=== PATIENT | female | born 1960 | race Caucasian/White ===

== ENCOUNTER 2016-04-30 21:39 | Inpatient (IN) | payer OTHER, MEDICARE ==
--- NOTE | ~2016-04-30 | BMI ---
[facility] Nutrition Therapy DATE: 05/03/16 Patient: IRENE RECINOS Physician: LUANNE Address: [address] [place] [address] [address] Room/Bed: [address] [place] [address], Zip: [place] [address] Admit Date: 05/01/16 Date of : 58 Height: 5 5 Weight: 252 114.6 HIGH BMI NOTE: ANTHROPOMETRICS: HT: 65" WT: 114.6 KG BMI: 42 INTERVENTION: 1. CONSISTENT CARBOHYDRATE DIET RECOMMENDATIONS: 1. ADD HEART HEALTHY RESTRICTION TO DIET TO PROMOTE GRADUAL WEIGHT LOSS. Respectfully, JOSIE FITZGERALD RD, LD Food and Nutritional Services [facility] cc: client file
--- NOTE | ~2016-04-30 | HP ---
Unit #: [id number] #: [id number] Patient: IRENE RECINOS [id number] [address] [place], [place] [address] [id number] I MR#: [id number] NAME: IRENE RECINOS. ROOM: 39949 Age: 55 Sex: F Admission Date: 05/01/2016 : 1960 Attending Physician: Oralia Nix M.D. Primary Care Physician: Tania Vizcarra HISTORY AND PHYSICAL CHIEF COMPLAINT Urinary tract infection with intractable nausea, vomiting and toxic metabolic encephalopathy. HISTORY This 55-year-old female with AODM, COPD, hypertension, chronic kidney disease, is admitted for a urinary tract infection. The patient was in her usual state of health until three days ago when she was more somnolent, dosing off, seeing things. She then developed intractable nausea, vomiting, notes some mild dysuria. Denies fevers, sweats or chills. She presented to this emergency department late last evening where she was somewhat hypertensive. Workup was notable for chronic kidney disease nearing end stage, along with a urinary tract infection. In the ER, she was given two doses of Zofran but continues to feel nauseous, and 1 g of Rocephin. PAST MEDICAL HISTORY 1. Admission 11/2007 for a subacute pontine infarct. JOSE revealed aneurysmal atrial septum. Normal ejection fraction, minimal atherosclerotic of the aorta, trace MR and TR. 2. DJD and chronic back pain with bulging discs. 3. COPD. 4. AODM. 5. Chronic kidney disease with a BUN of 34, creatinine of 3.7 03/2016. Plans are for a fistula or dialysis shunt in her left arm. 6. Anxiety and depression. 7. Hypertension. 8. Remote history of paroxysmal atrial fibrillation. 9. Immobilization syndrome, patient uses a motorized wheelchair. 10. Right humerus fracture, treated conservatively. 11. Partial hysterectomy. 12. Tonsillectomy. 13. Excision of a pilonidal cyst. ALLERGIES No known drug allergies. MEDICATIONS Home medications on the Med Rec sheet include: 1. Wellbutrin XL 150 mg daily. 2. Coreg 6.25 mg b.i.d. 3. Norvasc 10 mg daily. 4. Iron tablet daily. Unit #: [id number] #: [id number] Patient: IRENE RECINOS 5. Lisinopril 5 mg daily. 6. Lasix 20 mg daily. 7. Calcitriol 0.25 mcg daily. 8. Lipitor 80 mg q. h.s. 9. Aspirin 325 mg daily. 10. Sodium bicarb 650 mg t.i.d. 11. P.r.n. Humalog. FAMILY HISTORY Diabetes mellitus, colon and pancreatic cancer, pacemaker. SOCIAL HISTORY The patient lives with her elderly . She stopped smoking two months ago, seldom drinks alcohol. REVIEW OF SYSTEMS Notable for nausea, vomiting, mild dysuria, confusion, hallucinations, chronic kidney disease, DJD, chronic pain, COPD, AODM, chronic kidney disease, anxiety, depression, hypotension, arrhythmia, above mentioned surgeries, previous CVA. All other systems were reviewed and are otherwise negative. PHYSICAL EXAMINATION GENERAL APPEARANCE: 55-year-old, obese female, currently in no acute distress. VITAL SIGNS: Temperature 98.2, pulse 90, respirations 16, blood pressure 170/79. O2 saturation is 96% on room air. HEENT: Eyes PERRLA. Extraocular muscles are intact. Pharynx is benign. NECK: Supple without adenopathy or thyromegaly. CHEST: Clear. BACK: With mild left CVA tenderness. CARDIAC: Normal S1 and S2 without S3, S4 or murmur. ABDOMEN: Bowel sounds are present. No hepatosplenomegaly, tenderness or masses. EXTREMITIES: Without edema. Pedal pulses are present but diminished. No ulcers on the feet. NEUROLOGIC EXAM: The patient is awake, alert, oriented. Cranial nerves are intact. She has equal strength throughout. DIAGNOSTIC STUDIES LABORATORY: Admission labs - hematocrit is 37.8, white blood count is 16.4, normal platelet count. SMA-12 - glucose 136, BUN 37, creatinine 4 up from a BUN of 34, creatinine 3.7 in March. Alkaline phos. 122. Negative alcohol. Normal lactic acid. Negative troponin. ABG - pH 7.37, pCO2 39, pO2 76, O2 saturation 94% on room air. Urine tox screen negative. Urinalysis - positive leukocyte esterase, positive protein, glucose, 2-5 red cells, 200-300 white cells, 1+ bacteria. IMAGING: Chest x-ray - chronic changes but no acute disease. Stable Unit #: [id number] #: [id number] Patient: IRENE RECINOS cardiomegaly. Head CT - no acute disease. Stable hypodensities. CARDIOVASCULAR: EKG - normal sinus rhythm, rate 88. Nonspecific ST wave abnormalities, particularly in 1 and AVL which is somewhat increased from before. ASSESSMENT 1. Pyelonephritis with intractable nausea and vomiting. 2. Toxic metabolic encephalopathy with hallucinations secondary to pyelonephritis. 3. Chronic kidney disease nearing end stage with plans for fistula or dialysis shunt placement in the future. 4. Adult onset diabetes mellitus. 5. Hypertension. 6. Paroxysmal atrial fibrillation, currently in a normal sinus rhythm. 7. Chronic obstructive pulmonary disease. 8. Immobilization syndrome. 9. Prior cerebrovascular accident. PLANS 1. Rocephin will be continued. 2. IV fluids and supportive treatment. Hold Lasix. 3. SCDs for DVT prophylaxis. Dictated by Pasha Sanchez/lior TD: 05/01/2016 06:03 JOB #: [id number] HISTORY AND PHYSICAL X Oralia Nix MD X HISTORY AND PHYSICAL
--- NOTE | ~2016-04-30 | CR72 ---
[facility] A Service of [facility] RADIOLOGY TEXT RESULTS PATIENT: IRENE RECINOS LOCATION: [facility] 334-01 : 58 UNIT #: [id number] AGE: [address]: Abran Pérez MD SEX: F ORDER DR: [id number] [facility] [address] [place], [place] [address] [id number] I MR#: [id number] Acc #: [id number] NAME: IRENE RECINOS. : 1960 SEX: F STUDY DATE/TIME: 04/30/2016 21:53 UNIT: CEDOF ROOM: 66405 STUDY DESCRIPTION: CR Chest Single View Portable Attending Physician: Oralia Nix M.D. Ordering Physician: Maximino Rosales M.D. Primary Care Physician: Tania Vizcarra MEDICAL IMAGING REPORT This report is preliminary unless electronic signature is present EXAM Portable chest 04/30/2016 HISTORY Shortness of breath, fever, nausea and cough for 3 days. Benign essential hypertension and nausea. FINDINGS There is mild cardiac enlargement. Focal fibrosis is seen in the right upper lobe. Pleural thickening or pleural effusion blunts the right costophrenic angle. Left lung is clear. No pneumothorax. IMPRESSION 1. Chronic changes right lung. No active pulmonary disease. 2. Stable cardiomegaly compared with 03/29/2016. Dictated by... Aiden Vásquez M.D. THIS IS AN ELECTRONICALLY VERIFIED REPORT Aiden Vásquez M.D. at 05/01/2016 10:57 AM SHARMIN/matthias TD: 05/01/2016 05:58 JOB #: [id number] MEDICAL IMAGING REPORT COPY
--- NOTE | ~2016-04-30 | EKG ---
PATIENT: IRENE RECINOS UNIT #: [id number] Ventricular Rate: 88 BPM Atrial Rate: 88 BPM P-R Interval: 96 ms QRS Duration: 72 ms Q-T Interval: 384 ms QTC Calculation(Bezet): 464 ms P [place]: 17 degrees Calculated R [place]: 10 degrees Calculated T [place]: 129 degrees Diagnosis Line: Sinus rhythm with short SC Diagnosis Line: Septal infarct , age undetermined Diagnosis Line: ST and T wave abnormality, consider lateral ischemia Diagnosis Line: Abnormal ECG Diagnosis Line: When compared with ECG of 20-NOV-2013 10:30, Diagnosis Line: Septal infarct is now Present Diagnosis Line: Nonspecific T wave abnormality has replaced Diagnosis Line: inverted T waves in Inferior leads Diagnosis Line: T wave inversion less evident in Anterolateral Diagnosis Line: leads Diagnosis Line: Confirmed by CYNTHIA FAGAN MD ([id number]) on 05/01/2016 Diagnosis Line: 7:35:15 PM INTERPRETING MD: RYLAN JUDGE
--- NOTE | ~2016-04-30 | CO ---
Unit #: [id number] #: [id number] Patient: ABY RODRIGUEZ [id number] [address] [place], [place] [address] [id number] I MR#: [id number] NAME: ABY RODRIGUEZ. ROOM: 334 Age: 55 Sex: F Admission Date: 05/01/2016 : 1960 Attending Physician: Abran Pérez M.D. Primary Care Physician: Tania Vizcarra Consultation Date: 05/02/2016 CONSULTATION REPORT REASON FOR CONSULTATION Renal failure. Thank you very much for asking us to see this patient in consultation. HISTORY OF PRESENT ILLNESS Ms. Aby Rodriguez is a 55-year-old female with a history of chronic kidney disease, late stage 4 or early stage 5, followed by Dr. Austin Deutsch in our group with creatinines in the mid 3s now who has a fistula surgery planned in 06/2016, who presented to the hospital here with apparently some increased may be a confusion at home, questionable TIA versus hypoglycemic episode. Upon presentation here had a negative CT scan and was more alert. She has had several days of nausea and vomiting. She states that it has improved some today. She denies any chest pain or shortness of breath. PAST MEDICAL HISTORY History of insulin-dependent diabetes mellitus, history of CVA in the past, history of COPD, history of chronic back pain, history of anxiety, history of depression, history of chronic kidney disease late stage 4 or early stage 5, history of degenerative joint disease, history of hypertension, history of hyperlipidemia, history of secondary hyperparathyroidism, and history of anemia. SOCIAL HISTORY She is . No alcohol. Retired. Still smokes apparently a pack a day. MEDICATIONS At home include sodium bicarb 650 two p.o. b.i.d.; Lasix 20 mg a day; Rocaltrol 0.25 mcg every Friday, Friday, and Friday; iron pill daily; Norvasc 10 mg a day; Coreg 6.25 mg b.i.d.; insulin; aspirin 325 mg a day; atorvastatin 80 mg a day; bupropion 150 mg daily; Chantix as needed; lisinopril 5 mg a day, inhalers. FAMILY HISTORY Positive for diabetes. Negative for kidney disease. REVIEW OF SYSTEMS As mentioned in the HPI, otherwise negative. No fevers, chills, visual problems, sinus problems, cough or hemoptysis. No neck pain or neck stiffness. No chest pain, chest heaviness, or shortness of breath. No severe abdominal pain. She did have nausea and vomiting that has improved. She denies any urinary symptoms. Upon presentation, she denies Unit #: [id number] #: [id number] Patient: ABY RODRIGUEZ any lower extremity swelling. PHYSICAL EXAMINATION GENERAL: She is alert and oriented now. VITAL SIGNS: Her T-max over the last 24 hours is 98.8, pulse is 67 to 92, blood pressure is anywhere from 95 to 163 over 50s to 80s. HEENT: She is normocephalic and atraumatic. Pupils are equal, round, and reactive to light. Extraocular muscles are intact. Hearing appears to be normal. Mouth clear. No erythema. No exudate. NECK: Supple. No JVD. No adenopathy. CARDIAC: She appears to have a regular rate without a rub. No S3 or S4. LUNGS: Clear bilaterally. No wheezes, rhonchi, or rales. ABDOMEN: Bowel sounds positive, obese, nontender, soft. EXTREMITIES: She has no lower extremity swelling. NEURO: Appears to be intact motor and sensory grossly now. : Deferred. DIAGNOSTIC STUDIES IMAGING STUDIES: She had a CT of her head showed no acute abnormalities. There was a hypodense area in the bilateral basal ganglia, left greater than right, stable from a previous study. Chest x-ray showed no acute disease, cardiomegaly. LABORATORY RESULTS: ABG upon presentation showed a pH of 7.369, pCO2 of 39, pO2 of 76 on room air. Initially, her BUN and creatinine were 34 and 4.0, today at 35 and 3.8; potassium of 4.5, bicarb of 21. Her calcium was 7.8, albumin was 2.9. CPK was 133. Folic acid level was 4.8. Iron stores in March showed a transferrin saturation of 7. Her hemoglobin is 9.3 down from 12.3 with hydration, [place] [address] down to 9200, platelets 203,000. Her initial urinalysis shows specific gravity of 1.02, nitrite negative, 3+ protein, 215 glucose, and 1+ blood, 2 to 5 rbc's, 200 to 300 wbc's, 1+ bacteria. Urine culture is negative at 24 hours. She did have 1 out of 2 blood cultures showing her Staph species possible skin contaminant. Repeat blood cultures yesterday are pending x2. ASSESSMENT AND PLAN 1. Chronic kidney disease, late stage 4 or early stage 5. I doubt if her nausea and vomiting related to uremia, although certainly it cannot be 100% sure. It is better today and I am going to try to advance her diet. I am going to discontinue her lisinopril usually when they functions less than 15%, I usually discontinue the AARON inhibitor to see if that help to improves. I will follow her blood pressure trends off the lisinopril. We will continue her sodium bicarb due to her mild acidosis and hold off on dialysis if unless she continues to have worsening nausea and vomiting. She has a fistula to be placed back sometime in 06/2016. 2. Hypertension. As mentioned above discontinue lisinopril. Continue other current medications. We will follow trends. 3. Probable urinary tract infection, on Rocephin right now. Probably, we would keep her on some sort of antibiotic at least 7 days even though her cultures are negative, although could be on oral agent not Bactrim when she gets discharged home. 4. Possible bacteremia. She did have an increased white count when she came in, which is improved, although that could be related to urine versus other. Repeat blood cultures are pending. If they are negative, I would recommend trying to get off vancomycin due to the risk of nephrotoxicity. 5. Slurring of speech, questionable from hypoglycemia versus transient ischemic attack versus other. We will defer further workup and treatment Unit #: [id number] #: [id number] Patient: ABY RODRIGUEZ per primary. Certainly, if the patient improves tomorrow, eating well, probably okay to be discharged, but I would like to watch her one more day. Dictated by.Jeffry. Rom Gomez M.D. CARLOS ALBERTO/vane TD: 05/03/2016 02:46 JOB #: [id number] CONSULTATION REPORT X Dandre Gomez MD X CONSULTATION REPORT
--- NOTE | ~2016-04-30 | CT4 ---
[facility] A Service of [facility] RADIOLOGY TEXT RESULTS PATIENT: IRENE RECINOS LOCATION: [facility] 334-01 : 58 UNIT #: [id number] AGE: [address]: Abran Pérez MD SEX: F ORDER DR: [id number] [facility] [address] [place], [place] [address] [id number] I MR#: [id number] Acc #: [id number] NAME: IRENE RECINOS. : 1960 SEX: F STUDY DATE/TIME: 05/02/2016 16:26 UNIT: A U ROOM: [facility] STUDY DESCRIPTION: CT Abd and Pelv Wo Cont Attending Physician: Abran Pérez M.D. Ordering Physician: Ed Doctor [id number] [facility] Primary Care Physician: Tania Vizcarra MEDICAL IMAGING REPORT This report is preliminary unless electronic signature is present EXAM CT abdomen and pelvis without contrast Date: 05/02/2016 HISTORY A 55-year-old female with pain in back today. History of urinary tract infection. Hypertension. Previous stroke. COPD. Diabetes. Kidney disease. Previous hysterectomy. TECHNIQUE This CT exam was performed with one or more of the following radiation dose reduction techniques: automatic exposure control, adjustment of mA and/or kV according to patient size, and iterative reconstruction. COMPARISON No previous CT abdomen and pelvis at this institution for comparison. PROCEDURE 3 mm noncontrast axial images through the abdomen and pelvis. Enteric contrast was not administered. FINDINGS Rounded atelectasis is present posterolaterally in the right lower lobe. Benign calcified granuloma in the posterior left lower lobe. Multiple gallstones are present without definite pericholecystic inflammation or biliary dilation. Noncontrast appearance of the liver, spleen, pancreas, adrenals within normal limits. Extensive bilateral renal vascular calcifications but no definite renal or ureteral stone, hydronephrosis or hydroureter is appreciated. Dense calcification of the mesenteric arteries. Midline hernia containing nonobstructed bowel loops. The [facility] A Service of [facility] RADIOLOGY TEXT RESULTS PATIENT: IRENE RECINOS LOCATION: [facility] 334-01 : 58 UNIT #: [id number] AGE: [address]: Abran Pérez MD SEX: F ORDER DR: appendix is normal. Limited evaluation of bowel due to lack of enteric contrast but no definite acute bowel inflammation is seen. Extensive diverticular changes throughout the colon, greatest in the sigmoid region, without convincing CT evidence of acute diverticulitis. Pelvis: Urinary bladder, uterus and rectum are within normal limits. No pelvic adenopathy or free fluid is seen. No acute osseous abnormalities are identified. Old left rib fractures posteriorly. IMPRESSION 1. No acute findings in the abdomen or pelvis. No urinary tract stone or hydronephrosis is seen. 2. Dense atherosclerotic calcifications in the renal vasculature and within the mesenteric arteries. 3. Chronic-appearing rounded atelectasis in the right lower lobe. 4. Cholelithiasis without CT evidence of acute cholecystitis. 5. Midline ventral hernia containing nonobstructed bowel. 6. Advanced sigmoid diverticulosis without CT evidence of acute diverticulitis. 7. Normal appendix. 8. Old left rib fractures. Dictated by... Shani Lawson M.D. THIS IS AN ELECTRONICALLY VERIFIED REPORT Shani Lawson M.D. at 05/03/2016 9:14 AM RAUL/vitaly TD: 05/02/2016 21:55 JOB #: [id number] MEDICAL IMAGING REPORT COPY
--- NOTE | ~2016-04-30 | CT71 ---
[facility] A Service of [facility] RADIOLOGY TEXT RESULTS PATIENT: IRENE RECINOS LOCATION: [facility] 334-01 : 58 UNIT #: [id number] AGE: [address]: Abran Péerz MD SEX: F ORDER DR: [id number] [facility] [address] [place], [place] [address] [id number] I MR#: [id number] Acc #: [id number] NAME: IRENE RECINOS. : 1960 SEX: F STUDY DATE/TIME: 04/30/2016 22:42 UNIT: CEDOF ROOM: 34910 STUDY DESCRIPTION: CT Head Wo Contrast Attending Physician: Oralia Nix M.D. Ordering Physician: Maximino Rosales M.D. Primary Care Physician: Tania Vizcarra MEDICAL IMAGING REPORT This report is preliminary unless electronic signature is present EXAM CT head without contrast dated 04/30/2016. COMPARISON CT head without contrast dated 11/23/2009. HISTORY Slurred speech since 2100 hours on Friday, memory loss. This CT exam was performed with one or more of the following radiation dose reduction techniques: automatic exposure control, adjustment of mA and/or kV according to patient size, and iterative reconstruction. FINDINGS CT of the head was obtained without contrast in the axial plane as per the protocol. No acute intracranial hemorrhage, space-occupying intracranial mass, hydrocephalus or midline shift. Focal hypo density is seen in the left basal ganglia and to a lesser degree in the right, relatively stable in the last 7 years. Significant motion artifact is noted. The study was evaluated after giving allowances to it. No obvious discernible acute intracranial hemorrhage, hydrocephalus or midline shift. There is minimal right mastoid tip mucosal thickening and paranasal sinus mucosal thickening. It is particularly worse in the left maxillary antrum with some frothiness. Nasal septum is deviated to the left. Imaged orbits with the ocular structures do not demonstrate any significant abnormality. IMPRESSION 1. Motion artifact limits evaluation. 2. No acute intracranial hemorrhage, hydrocephalus or midline shift. 3. Mild hypodensities are noted in bilateral basal ganglia particularly in the left, stable when compared to the previous study, suspicious for likely mild encephalomalacia change. 4. MRI is more sensitive and specific in evaluation of early acute STS. [facility] A Service of [facility] RADIOLOGY TEXT RESULTS PATIENT: IRENE RECINOS LOCATION: [facility] 334-01 : [birth year] UNIT #: [id number] AGE: [address]: Abran Pérez MD SEX: F ORDER DR: stroke. Dictated by... Dominic Villa M.D. THIS IS AN ELECTRONICALLY VERIFIED REPORT Dominic Villa M.D. at 05/01/2016 10:46 AM DONNA/david TD: 05/01/2016 07:29 JOB #: [id number] MEDICAL IMAGING REPORT COPY
--- NOTE | ~2016-04-30 | DS ---
Unit #: [id number] #: [id number] Patient: IRENE RECINOS [id number] [address] [place], [place] [address] [id number] I MR#: [id number] NAME: IRENE RECINOS. ROOM: 334 Age: 55 Sex: F Admission Date: 05/01/2016 : 1960 Discharge Date: 05/03/2016 Attending Physician: Abran Pérez M.D. Primary Care Physician: Tania Vizcarra DISCHARGE SUMMARY DISCHARGE DIAGNOSES 1. Klebsiella pneumoniae urinary tract infection. Will be discharged on Levaquin. Sensitive to Levaquin. 2. Incidental finding of cholelithiasis. Arranging for outpatient followup with general surgery. 3. Toxic metabolic encephalopathy secondary to urinary tract infection and dementia. 4. Chronic kidney disease stage 4, followed by Dr. Deutsch and Dr. Gomez. Will see Dr. Deutsch within 2-3 weeks for repeat BMP. 5. Type 2 diabetes. Accu-Cheks stable here. 6. Essential hypertension. Blood pressure has been stable. Dr. Deutsch is adding hydralazine 25 mg orally t.i.d. to her home management. 7. Paroxysmal atrial fibrillation. Currently in normal sinus rhythm. 8. Chronic obstructive pulmonary disease, stable, without acute exacerbation. The patient is oxygenating well at 99% to 100% on room air. 9. Immobility syndrome. 10. Remote cerebrovascular accident. 11. Morbidly obese with body mass index of 42. HEALTHCARE FACILITY ADMINISTRATOR Nephrology with Dr. Gomez and Dr. Deutsch. PROCEDURES None. DIAGNOSTIC STUDIES IMAGING: Chest x-ray from 04/30/16. Impression - Chronic changes right lung. No active pulmonary disease. Stable cardiomegaly compared with 03/29/16. Head CT without contrast. Impression - Motion artifact limits evaluation. No acute intracranial hemorrhage, hydrocephalus or midline shift. Mild hypodensities are noted in bilateral basal ganglia, particularly in the left. Stable when compared to the previous study. Suspicious for likely mild encephalomalacia change. CT abdomen and pelvis on 05/02/16. Impression - No acute findings in the abdomen or pelvis. No urinary tract stone or hydronephrosis is seen. Dense atherosclerotic calcifications in the renal vasculature and within the mesenteric arteries. Chronic-appearing rounded atelectasis in the middle lower lobe. Cholelithiasis without CT evidence of acute cholecystitis. Midline ventral hernia containing unobstructed bowel. Advanced sigmoid diverticulosis without CT evidence of acute Unit #: [id number] #: [id number] Patient: IRENE RECINOS diverticulitis. Normal appendix. Old left rib fractures. LABS: On the day of discharge the patient's labs include BMP with glucose of 116, BUN 38, creatinine 3.9, sodium 140, potassium 4.7, chloride 110, CO2 22, total protein 6.1, albumin 2.9, total bilirubin 0.6, AST 14, ALT 9, alkaline phosphatase 101. CBC - WBC of 9.2, RBC 3.38, hemoglobin 10.2, hematocrit 30.7, MCV 90.7, MCH 30.1, MCHC 33.2, RDW 15.1, platelets 187, MPV 9.7. HOSPITAL COURSE The patient is a pleasant 55-year-old female with past medical history of stage 4 chronic kidney disease, type 2 diabetes, COPD without chronic respiratory failure, essential hypertension, remote CVA. She was brought to the emergency department due to complaints of altered mental status. The patient stated that she was in her usual state of health until 3 days prior to hospitalization when she began to feel more somnolent, dozing off, seeing things. She then developed intractable nausea and vomiting, sometimes with mild dysuria. The patient denied fevers, chills or sweats. She presented to the emergency department where she was somewhat hypertensive. Workup was notable for chronic kidney disease, near endstage, along with a UTI. In the emergency department she was given doses of Zofran and 1 gram of Rocephin. She was admitted for continued antibiotic for UTI with toxic metabolic encephalopathy with hallucinations. The next day at the time of my assessment the patient was alert and oriented x3, but she was still asking if "the TV yaneth was going to come and fix her TV." Due to this uncertain toxic metabolic encephalopathy, nephrology was consulted given her chronic kidney disease and her altered mental status, who felt that she is possibly near her baseline and, due to her being oriented x3, there was no need for acute dialysis. Therefore, (1) had recommended that Levaquin be used for her Klebsiella UTI dosed q.48 hours. The next day with the finalized Klebsiella UTI with minimal colon count, I had a CT abdomen and pelvis to see if there was any kidney stone, but there was none present. There was an incidental finding of cholelithiasis without impression of acute cholecystitis. Due to her liver function being relatively normal and the fact that she was able to tolerate oral intake, I felt the patient was stable and she could be discharged home to follow up with general surgeon for evaluation of cholecystectomy. Nephrology thought that the patient was also stable at this time and that she could be discharged home to follow up with them in the office within 2-3 weeks. With regard to her chronic immobility and her confusion, we did ask physical therapy to evaluate this individual, who thought that she was at her baseline in concern for her ADLs. The patient does have limited mobility. She does self transport but she gets around with an electric wheelchair and thought that she would not benefit much from their therapy. The patient actually had declined the need for home health at this time, stating that she has [facility] and they will follow up with her. With this, we felt that she was stable and ready for discharge. DISCHARGE CONDITION Stable. DISCHARGE DIET Resume her renal diet with low potassium, low sodium diet, as well as consistent carb diet per [employer] recommendations for her diabetes. Unit #: [id number] #: [id number] Patient: IRENE RECINOS DISCHARGE ACTIVITIES Resume activities as was prior to hospitalization, as she does not ambulate and gets around with an electric scooter. DISCHARGE MEDICATIONS 1. Sodium bicarb 650 mg orally t.i.d. 2. Wellbutrin 150 mg orally daily. 3. Lipitor 80 mg orally at bedtime. 4. Coreg 6.25 mg orally b.i.d. 5. Norvasc 10 mg orally daily. 6. Lasix 20 mg orally daily. 7. Stop lisinopril. 8. Humalog low dose sliding scale prior to meals and at bedtime as was prior to hospitalization. 9. Iron supplement 1 tablet orally daily. 10. Aspirin 325 mg orally daily. 11. Levaquin. She will be getting 250 mg orally q.48 hours. She is starting on 05/04/16 for a total of 3 doses. 12. Calcitriol 0.25 mcg orally daily. 13. Hydralazine, as prescribed by Dr. eDutsch, 25 mg orally t.i.d. she will need to have a followup BMP per Dr. Deutsch's request within 2 weeks. FOLLOWUP INSTRUCTIONS 1. BMP in [address] Deutsch's request. 2. Follow up with [facility] within 1 week. 3. Follow up with Dr. Deutsch within 2-3 weeks. 4. Follow up with [facility] for assessment of cholelithiasis for possible cholecystectomy. Dictated by... Marilin Spicer PA-C for Pasha Andrade/ronnie TD: 05/04/2016 14:02 JOB #: [id number] CC: Vishal DISCHARGE SUMMARY X X DISCHARGE SUMMARY
[~2016-04-30 21:39] MED LIST: ACETAMINOPHEN PO; ALBUTEROL MININEB NEB; ALBUTEROL17 GM INH; ASPIRIN81 MG PO; ATACAND PO; BACLOFEN10 MG PO; BROMFED DM COU118 ML PO; BUSPAR5 M1 PO; CATAPRES0.1 MG PO; CIPRO PO; CLARITIN10 MG PO; COLACE PO; COREG6.25 MG PO; FLORASTOR250 M1 PO; IBUPROFEN PO; IRON325 ( 651 PO; LASIX20 MG PO; LEVAQUIN750 M1 PO; LEVEMIR100 U/ML SUBQ; LEVEMIR100 UNITS/; LEVEMIR100 UNITS/ SUBQ; LISINOPRIL5 MG PO; LORTAB 2.5/5001 TAB PO; MILK OF MAGNESIA PO; MULTI VITAMIN1 EACH PO; NICOTINE PATCH1 EACH TD; NIFEREX-150 FO150 MG PO; NORVASC PO; NORVASC10 MG PO; NOVOLOG100 U/M2 SUBQ; NOVOLOG100 U/ML; NYSTATIN5 ML PO; PREDNISONE10 MG PO; SODIUM BICARBO650 MG PO; WELLBUTRIN XL150 M1 PO; ZESTRIL5 MG PO; ZOCOR20 MG PO; [UNRECOGNIZED DRUG - OTHER]
[2016-04-30 22:16] LABS: POC - CKMB 9.1 ng/mL (0.0-7.9); POC - TROPONIN <0.05 ng/mL (<=0.05)
[2016-04-30 22:19] LABS: BASOPHIL# 0.1 X10e3 (0-0.3); BASOPHIL% 0.4 % (0-2.5); EOSINOPHIL% 0.2 % (0.0-7.0); HEMATOCRIT 37.8 % (35.0-45.0); HEMOGLOBIN 12.3 gm/dL (12.0-16.0); LYMPHOCYTE# 0.6 X10e3 (1.0-3.5); LYMPHOCYTE% 3.9 % (17.0-45.0); MEAN CELL VOLUME 90.6 FL (83-96); MEAN CORPUSCULAR HEMOGLOBIN 29.5 PG (28-34); MEAN CORPUSCULAR HGB CONC 32.6 g/dL (30-36); MEAN PLATELET VOLUME 10.1 FL (6.5-11.5); MONOCYTE# 0.6 X10e3 (0-1.0); MONOCYTE% 3.7 % (3.0-12.0); NEUTROPHIL% 91.8 % (40-75); PLATELET COUNT 274 X10e3 (140-420); RED BLOOD COUNT 4.17 X10e (3.90-5.30); RED CELL DISTRIBUTION WIDTH 14.8 % (11.0-15.5); WHITE BLOOD COUNT 16.4 X10e3 (4.0-10.5)
[2016-04-30 22:22] LABS: DIFF IND YES
[2016-04-30] MEDS ORDERED: BAYER ASPIRIN325 M1 PO (22:40)
[2016-04-30] MEDS ORDERED: CALCITRIOL0.25 MC1 PO (22:40)
[2016-04-30] MEDS ORDERED: LIPITOR80 MG PO (22:40)
[2016-04-30] MEDS ORDERED: SODIUM BICARBO650 MG PO (22:41)
[2016-04-30 22:45] LABS: ALBUMIN SERUM 3.5 g/dL (3.5-5.0); ALKALINE PHOSPHATASE 122 U/L (32-92); ALT (SGPT) 11 U/L (10-40); AST (SGOT) 18 U/L (10-42); BILIRUBIN, DIRECT 0.1 mg/dL (0.0-0.2); BILIRUBIN,INDIRECT 0.7 mg/dL (0.0-0.9); BILIRUBIN,TOTAL 0.8 mg/dL (0.2-2.0); BLOOD UREA NITROGEN 37 mg/dL (9-23); BUN/CREATININE RATIO 9.25; CARBON DIOXIDE 23 mmol/L (22-31); CHLORIDE 111 mmol/L (100-111); GLOM FILT RATE Estimated 12.3 mL/min (>60); GLUCOSE FASTING 136 mg/dL (70-110); POTASSIUM 4.7 mmol/L (3.5-5.1); PROTEIN TOTAL SERUM 7.3 g/dL (6.0-8.3); SODIUM 144 mmol/L (135-145)
[2016-04-30 22:52] LABS: ALCOHOL BLOOD <5 mg/dL (0)
[2016-04-30 23:23] LABS: PLATELET ESTIMATE NORMAL (NORMAL); RBC NORMAL YES; SMUDGE CELLS 5 /100
[2016-04-30 23:25] LABS: ARTERIAL BLD GAS O2 SATURATION 94.4 % (90.0-100.0); ARTERIAL BLOOD GAS CARBOXY HB 1.2 %sat (0.0-9.0); ARTERIAL BLOOD GAS HCO3 22.5 mmol/L; ARTERIAL BLOOD GAS MET HB 1.2 %sat (0.0-2.0); ARTERIAL BLOOD GAS PCO2 39.2 mmHg (35.0-45.0); ARTERIAL BLOOD GAS pH 7.369 (7.350-7.450)
[2016-04-30 23:26] LABS: ARTERIAL BLOOD GAS ART SITE RIGHT BRACHIAL; ARTERIAL BLOOD GAS DELIVERY ROOM AIR; ARTERIAL BLOOD GAS PO2 76.7 mmHg (80.0-100); ARTERIAL DRAW? YES
[2016-05-01 00:02] LABS: URINE SOURCE CLEAN CATCH
[2016-05-01 00:08] LABS: URINE APPEARANCE CLOUDY; URINE BILIRUBIN NEG (NEG); URINE BLOOD 1+ (NEG); URINE COLOR YELLOW; URINE GLUCOSE 250 MG/DL (NEG); URINE KETONE NEG (NEG); URINE LEUKOCYTE ESTERASE 1+ (NEG); URINE NITRATE NEG (NEG); URINE PH 6.5 (5-8); URINE PROTEIN 3+ (NEG); URINE UROBILINOGEN 0.2 MG/DL (NEG)
[2016-05-01 00:11] LABS: CULTURE INDICATED? YES; URINE BACTERIA AUWI 1+ (NEGATIVE); URINE SQUAMOUS EPITHELIAL CELL OCC /[HPF]; UWBCS1 AUWI 200-300 (0-5)
[2016-05-01 00:24] LABS: AMPHETAMINE NEG (NEG); BARBITURATES NEG (NEG); BENZODIAZEPINES NEG (NEG); COCAINE NEG (NEG); MARIJUANA NEG (NEG); OPIATES NEG (NEG); TRICYCLIC ANTIDEPRESSANTS NEG (NEG); U METHADONE NEG (NEG)
[2016-05-01] MEDS ORDERED: HUMALOG100 U/ML (01:50)
[2016-05-01 07:24] LABS: BASOPHIL% 0.3 % (0-2.5); EOSINOPHIL% 0.2 % (0.0-7.0); HEMATOCRIT 31.9 % (35.0-45.0); HEMOGLOBIN 10.5 gm/dL (12.0-16.0); LYMPHOCYTE# 1.1 X10e3 (1.0-3.5); LYMPHOCYTE% 8.1 % (17.0-45.0); MEAN CELL VOLUME 90.8 FL (83-96); MEAN CORPUSCULAR HEMOGLOBIN 29.8 PG (28-34); MEAN CORPUSCULAR HGB CONC 32.9 g/dL (30-36); MEAN PLATELET VOLUME 9.4 FL (6.5-11.5); MONOCYTE# 0.8 X10e3 (0-1.0); MONOCYTE% 5.6 % (3.0-12.0); NEUTROPHIL# 11.5 X10e3 (1.5-7.1); NEUTROPHIL% 85.8 % (40-75); PLATELET COUNT 241 X10e3 (140-420); RED BLOOD COUNT 3.51 X10e (3.90-5.30); WHITE BLOOD COUNT 13.5 X10e3 (4.0-10.5)
[2016-05-01 07:29] LABS: DIFF IND NO
[2016-05-01 08:01] LABS: ALBUMIN SERUM 2.9 g/dL (3.5-5.0); BILIRUBIN,TOTAL 0.6 mg/dL (0.2-2.0); BUN/CREATININE RATIO 9.5; CALCIUM SERUM 8.3 mg/dL (8.4-10.2); GLOM FILT RATE Estimated 12.3 mL/min (>60); POTASSIUM 4.8 mmol/L (3.5-5.1); PROTEIN TOTAL SERUM 6.1 g/dL (6.0-8.3)
[2016-05-02 05:40] LABS: HEMATOCRIT 28.7 % (35.0-45.0); HEMOGLOBIN 9.3 gm/dL (12.0-16.0); MEAN CELL VOLUME 90.6 FL (83-96); MEAN CORPUSCULAR HEMOGLOBIN 29.5 PG (28-34); MEAN CORPUSCULAR HGB CONC 32.5 g/dL (30-36); MEAN PLATELET VOLUME 9.2 FL (6.5-11.5); RED BLOOD COUNT 3.16 X10e (3.90-5.30); RED CELL DISTRIBUTION WIDTH 15.1 % (11.0-15.5); WHITE BLOOD COUNT 9.2 X10e3 (4.0-10.5)
[2016-05-02 06:13] LABS: BUN/CREATININE RATIO 9.21; CALCIUM SERUM 7.8 mg/dL (8.4-10.2); CREATININE SERUM 3.8 mg/dL (0.6-1.4); GLOM FILT RATE Estimated 13.1 mL/min (>60); POTASSIUM 4.6 mmol/L (3.5-5.1)
[2016-05-02 06:52] LABS: FOLATE (FOLIC ACID) 4.8 ng/mL (>5.8)
[2016-05-03 08:03] LABS: HEMATOCRIT 30.7 % (35.0-45.0); HEMOGLOBIN 10.2 gm/dL (12.0-16.0); MEAN CELL VOLUME 90.7 FL (83-96); MEAN CORPUSCULAR HEMOGLOBIN 30.1 PG (28-34); MEAN CORPUSCULAR HGB CONC 33.2 g/dL (30-36); MEAN PLATELET VOLUME 9.7 FL (6.5-11.5); RED BLOOD COUNT 3.38 X10e (3.90-5.30); RED CELL DISTRIBUTION WIDTH 15.1 % (11.0-15.5); WHITE BLOOD COUNT 9.2 X10e3 (4.0-10.5)
[2016-05-03 08:46] LABS: BUN/CREATININE RATIO 9.74; CALCIUM SERUM 8.2 mg/dL (8.4-10.2); CREATININE SERUM 3.9 mg/dL (0.6-1.4); GLOM FILT RATE Estimated 12.7 mL/min (>60); PHOSPHOROUS 4.4 mg/dL (2.5-4.6); POTASSIUM 4.7 mmol/L (3.5-5.1)
[2016-05-03] MEDS ORDERED: LEVAQUIN250 MG PO (16:19)
[2016-05-03] MEDS ORDERED: HYDRALAZINE HCL25 MG PO (16:19)
== END 2016-05-03 17:59 | disposition home or self-care (01) | DRG 689 ==
LOC: CED 21:39 → CEDOF 05-01 03:40 → C3A PCU 05-01 09:42
PROVIDERS: Emergency Medicine; Internal Medicine; Internal Medicine Nephrology
DX: N39.0 Urinary tract infection, site not specified (principal); G92 Toxic encephalopathy; E11.22 Type 2 diabetes mellitus with diabetic chronic kidney disease; N18.4 Chronic kidney disease, stage 4 (severe); I48.0 Paroxysmal atrial fibrillation; I12.0 Hypertensive chronic kidney disease with stage 5 chronic kidney disease or end stage renal disease; Z68.41 Body mass index [BMI] 40.0-44.9, adult; Z79.84 Long term (current) use of oral hypoglycemic drugs; I70.0 Atherosclerosis of aorta; J44.9 Chronic obstructive pulmonary disease, unspecified; F41.9 Anxiety disorder, unspecified; F32.9 Major depressive disorder, single episode, unspecified; M62.3 Immobility syndrome (paraplegic); Z90.710 Acquired absence of both cervix and uterus; Z79.82 Long term (current) use of aspirin; Z86.73 Personal history of transient ischemic attack (TIA), and cerebral infarction without residual deficits; M19.90 Unspecified osteoarthritis, unspecified site; R47.81 Slurred speech; E66.01 Morbid (severe) obesity due to excess calories; B96.1 Klebsiella pneumoniae [K. pneumoniae] as the cause of diseases classified elsewhere; K80.20 Calculus of gallbladder without cholecystitis without obstruction
CPT/HCPCS: 36415; 36600; 70450; 71010; 74176; 80048; 80053; 80076; 80307; 81003; 82550; 82553; 82607; 82746; 82803; 82947; 83605; 84100; 84484; 85025; 85027; 87040; 87086; 87186; 93005; 94640; 94760; 96374; 97166; 99285; G0480; G8987-GO; G8988-GO; G8989-GO; J0696; J0885; J1815; J2405; J2765; J2916; J3370

== ENCOUNTER 2016-06-02 19:06 | Inpatient (IN) | payer OTHER ==
--- NOTE | ~2016-06-02 | HP ---
Unit #: [id number] #: [id number] Patient: IRENE RECINOS [id number] [address] [address] [id number] MR#: [id number] NAME: IRENE RECINOS. ROOM: Age: 55 Sex: F Admission Date: 06/02/2016 : 1960 Attending Physician: Juan Herman M.D. HISTORY AND PHYSICAL CHIEF COMPLAINT Diarrhea, cough, leukocytosis. HISTORY OF PRESENT ILLNESS This 55-year-old female with AODM, COPD, hypertension, chronic kidney disease nearing end stage, is admitted for diarrhea and a cough. The patient was last admitted to this hospital a month ago for a klebsiella urinary tract infection associated with toxic metabolic encephalopathy. She states that two weeks ago she developed a deep cough at times productive of purulent sputum, along with constant diarrhea and some nausea and vomiting. Her this past week. She was brought to this facility where her temperature is 100.2. She does look to be ill on exam, although her abdominal examination is fairly benign. She was noted to have significant bronchospasm earlier and given Solu-Medrol, one gram of IV vancomycin, Phenergan, and Bentyl. Chest x-ray shows stable changes but no infiltrate. Her white blood count is 26.5. PAST MEDICAL HISTORY 1. Admission November 2007 for subacute pontine infarct. A JOSE revealed aneurysmal atrial septum, normal ejection fraction, minimal atherosclerotic disease of the aorta, and trace MR and TR. 2. Degenerative joint disease and chronic pain with bulging disc. 3. Recent admission to this facility last month for klebsiella UTI and toxic metabolic encephalopathy. 4. Chronic obstructive pulmonary disease. 5. Adult-onset diabetes mellitus. 6. Stage 4-5 kidney disease nearing end stage. Plans are for fistula or dialysis shunt left arm. 7. Anxiety and depression. 8. Hypertension. 9. Remote history of paroxysmal atrial fibrillation. 10. Immobilization syndrome. The patient uses a motorized wheelchair. 11. Gallstones. 12. Right humerus fracture treated conservatively. 13. Partial hysterectomy. 14. Tonsillectomy. 15. Excision of a pilonidal cyst. ALLERGIES No known drug allergies. HOME MEDICATIONS 1. Wellbutrin-XL 150 mg daily. Unit #: [id number] #: [id number] Patient: IRENE RECINOS 2. Norvasc 10 mg daily. 3. Iron daily. 4. Lasix 20 mg daily. 5. Calcitriol 0.25 mcg daily. 6. Lipitor 80 mg daily. 7. Aspirin 325 mg daily. 8. Sodium bicarbonate 650 mg t.i.d. 9. Humalog p.r.n. 10. Low-dose sliding scale. 11. Patient finished a course of Levaquin about a month ago. 12. Hydralazine 25 mg t.i.d. 13. Zofran p.r.n. 14. Baclofen 10 mg b.i.d. p.r.n. FAMILY HISTORY Diabetes, colon and pancreatic cancer, and pacemaker. SOCIAL HISTORY The patient currently is living alone. Her elderly this week. She stopped smoking three months ago and seldom drinks alcohol. REVIEW OF SYSTEMS Somewhat difficult to obtain as patient is mildly somnolent after receiving Phenergan in the ER. PHYSICAL EXAMINATION GENERAL: A somnolent, but arousable, obese, 55-year-old female currently in no acute distress. VITAL SIGNS: Temperature 97.4, pulse 87, respirations 18, blood pressure 149/57, and O2 saturation 97% on 3 liters of oxygen. HEENT: Eyes PERRLA. Extraocular muscles are intact. Pharynx: There is some whitish material in the patient's oropharynx. I am unsure if this is thrush or mucus. NECK: Supple without adenopathy or thyromegaly. CHEST: Currently fairly clear. CARDIAC: Normal S1 and S2, without S3, S4, or murmur. ABDOMEN: Bowel sounds are present. No hepatosplenomegaly, tenderness, or masses. EXTREMITIES: Without edema. Pedal pulses are diminished. No ulcers on the feet. NEUROLOGIC: Patient is mildly somnolent, but arousable. Cranial nerves are intact. Equal strength throughout. DIAGNOSTIC STUDIES LABORATORY: Hematocrit is 40.1 and white blood count is 26.5 with normal platelet count. Six bands noted. SMA-12: BUN 28, creatinine 4 which is stable, CO2 is 21, and alkaline phosphatase 140. Normal lipase. Negative cardiac markers. Urinalysis with 3+ protein and positive glucose with 2-5 red cells and 10-25 white cells but no bacteria on a catheterized specimen. IMAGING: Chest x-ray shows stable chronic changes and mild cardiomegaly. CARDIOLOGY: EKG shows sinus tachycardia, rate 108, and some nonspecific ST wave abnormalities noted in I and AVL. ASSESSMENT 1. Likely Clostridium difficile colitis. 2. Bronchitis/chronic obstructive pulmonary disease exacerbation. Unit #: [id number] #: [id number] Patient: IRENE RECINOS 3. Pyuria but negative nitrites and negative leukocyte esterase. 4. Questionable thrush. 5. Chronic kidney disease nearing end stage. 6. Adult-onset diabetes mellitus. 7. Essential hypertension. 8. Anxiety and depression. 9. of spouse this week. PLANS 1. P.O. vancomycin pending stool cultures. 2. The patient was given one dose of IV vancomycin in the ER, and I will give only one dose of Levaquin pending culture results. Obviously, if stool is negative for C. difficile, will need to continue with some form of IV antibiotics and work up further. 3. IV fluids. 4. DVT prophylaxis. 5. Nystatin Swish and Swallow. 6. Renal consultation. 7. Short course of steroids and bronchodilators. 8. Hold Lasix for now. Dictated by Pasha Sanchez/suzanne TD: 06/02/2016 22:16 JOB #: [id number] CC: Miguelu HISTORY AND PHYSICAL Page 1 of 1 X Oralia Nix MD X HISTORY AND PHYSICAL
--- NOTE | ~2016-06-02 | CO ---
Unit #: [id number] #: [id number] Patient: ABY RODRIGUEZ [id number] [facility] [address] [place], [place] [address] [id number] I MR#: [id number] NAME: ABY RODRIGUEZ. ROOM: 556 Age: 55 Sex: F Admission Date: 06/02/2016 : 1960 Attending Physician: Alen Arango M.D. Primary Care Physician: Tania Vizcarra Consultation Date: 06/05/2016 CONSULTATION REPORT DISCUSSION Aby Rodriguez is a 55-year-old female, seen on 06/05/2016. The patient interviewed, chart reviewed, and obtained information from nursing staff. The patient was seen as a followup on 06/05/2016 in bed 556 at [facility]. The patient was lying comfortably in bed, pleasant, cooperative, dressed in hospital attire. The patient reports medication is helping her, decrease in anxiety, able to sleep good. The patient's vital signs stable; temperature 98.4, pulse 86, respirations 18, blood pressure 152/63, oxygen saturation 100%. The patient denied any current complaints. REVIEW OF SYSTEMS Complete review of systems unremarkable. MENTAL STATUS EXAMINATION General appearance; the patient lying comfortably in bed, dressed casually in hospital attire. Attention span and concentration, fair. Speech, regular rate. Oriented in time, place, and person. Mood and affect, sad and dysphoric. Thought process, coherent. Thought content, the patient denied any thoughts of harming self or others or any psychotic symptom but still feeling sad, depressed, anxious, as there was recent loss of . Recent and remote memory, fair. Language, able to name object and repeat phrases. Fund of knowledge, fair. Insight and judgment, fair to slightly impaired. DIAGNOSES 1. Major depressive disorder, recurrent, severe, F33.2. 2. Anxiety disorder, not otherwise specified, F40.01. ASSESSMENT AND PLAN 1. Supportive psychotherapy and psychoeducation provided to the patient and provided with grief counseling. 2. Advised to continue with current medication. If needed, consider further adjustment of medication. We will continue to follow. Dictated by... Dayday Celeste M.D. TAJ/vane TD: 06/06/2016 23:02 JOB #: [id number] Unit #: [id number] #: [id number] Patient: ABY RODRIGUEZ CONSULTATION REPORT Page 1 of 1 X Dayday Celeste MD CONSULTATION REPORT
--- NOTE | ~2016-06-02 | CR63 ---
[facility] A Service of [facility] & [facility] RADIOLOGY TEXT RESULTS PATIENT: IRENE RECINOS LOCATION: [facility] 47205-06 : [birth year] UNIT #: [id number] AGE: [address]: Alen Arango MD SEX: F ORDER DR: [id number] [facility] [address] [place], [place] [address] [id number] I MR#: [id number] Acc #: [id number] NAME: IRENE RECINOS. : 1960 SEX: F STUDY DATE/TIME: 06/02/2016 19:09 UNIT: [facility] ROOM: 44334 STUDY DESCRIPTION: CR Chest 2 View Attending Physician: rOalia Nix M.D. Ordering Physician: Juan Herman M.D. Primary Care Physician: Tania Vizcarra MEDICAL IMAGING REPORT This report is preliminary unless electronic signature is present EXAM Chest x-ray 2 views HISTORY Short of air 2 weeks with chest pain, cough and congestion, smoker for 40 years history of hypertension. COMMENT 2 views of the chest reviewed. There is comparison study from 04/30/2016. FINDINGS Mild cardiac silhouette enlargement. Mild volume loss right hemithorax with blunting of the right costophrenic angle and parenchymal scarring in the right upper lung peripherally. These findings are chronic. Mild shift of the mediastinum towards the right side. There is an old healed rib fracture on the left with some deformity. No acute infiltrate is suspected. There is distortion of parenchymal architecture consistent with underlying chronic lung disease and there is evidence for old granulomatous disease. There is no pneumothorax. There are thoracic spine degenerative changes and the bones are demineralized. IMPRESSION Essentially stable appearance of the chest. There are chronic changes in the right hemithorax with volume loss, areas of parenchymal scarring and blunting of the right costophrenic angle. Please correlate with history. Mild cardiac silhouette enlargement is unchanged. Old left-sided rib fracture. Underlying chronic lung disease but no acute infiltrate, acute congestive failure, pleural effusion or pneumothorax. Dictated by... Kimberly Clement M.D. [facility] A Service of [facility] & [facility] RADIOLOGY TEXT RESULTS PATIENT: IRENE RECINOS LOCATION: [facility] [id number] : [birth year] UNIT #: [id number] AGE: [address]: Alen Arango MD SEX: F ORDER DR: THIS IS AN ELECTRONICALLY VERIFIED REPORT Kimberly Clement M.D. at 06/03/2016 10:24 AM Belen TD: 06/02/2016 23:15 JOB #: [id number] MEDICAL IMAGING REPORT Page 1 of 1 COPY
--- NOTE | ~2016-06-02 | CO ---
Unit #: [id number] #: [id number] Patient: ABY RODRIGUEZ [id number] [address] [address] [id number] I MR#: [id number] NAME: ABY RODRIGUEZ. ROOM: 556 Age: 55 Sex: F Admission Date: 06/02/2016 : 1960 Attending Physician: Alen Arango M.D. Consultation Date: 06/04/2016 CONSULTATION REPORT REASON FOR CONSULTATION Depression, anxiety. HISTORY OF PRESENT ILLNESS Miss Aby Rodriguez is a 55-year-old white female seen in room 556, bed 1, at [facility], on June 04, 2016. Patient was sitting comfortably in bed trying to eat her dinner. Patient was somewhat tearful, sad, and dysphoric. Patient reported she lost her a week ago in this hospital. Patient reported that he was 80 years of age, but she reported that she is 55. Patient reported that after that she has been feeling more sad, depressed, anxious, and nervous, and having trouble sleeping and severe anxiety. Patient reported she takes medication for depression and is currently on Wellbutrin but having increasing problems with the anxiety and trouble sleeping because of her medical condition, as well as the recent loss. Patient currently denied any suicidal or homicidal ideation and denied any psychotic symptoms. No history of any substance abuse. PAST PSYCHIATRIC HISTORY Remarkable for history of depression. No history of any suicide attempt or any inpatient treatment. PAST MEDICAL HISTORY 1. Subacute pontine infarct in 2007. 2. Degenerative joint disease. 3. Recent toxic metabolic encephalopathy on last admission. 4. Chronic obstructive pulmonary disease. 5. Adult-onset diabetes mellitus. 6. Stage 4-5 kidney disease nearing end stage. 7. Anxiety. 8. Depression. 9. Hypertension. 10. Remote history of paroxysmal atrial fibrillation. 11. Immobilization syndrome. 12. Gallstone. 13. Right humerus fracture treated conservatively. 14. Partial hysterectomy. 15. Tonsillectomy. 16. Excision of pilonidal cyst. ALLERGIES No known drug allergies. MEDICATIONS Unit #: [id number] #: [id number] Patient: ABY RODRIGUEZ 1. Wellbutrin XL 300 mg daily. 2. Norvasc 10 mg daily. 3. Iron tablet. 4. Lasix. 5. Calcitriol. 6. Lipitor. 7. Aspirin. 8. Sodium bicarbonate. 9. Humalog low-dose sliding scale. 10. Hydralazine. 11. Zofran. 12. Baclofen. FAMILY HISTORY/SOCIAL HISTORY Patient has poor support from family, living alone, recently lost her elderly who a week ago. Patient denied any use of drugs and alcohol and no history of any abuse. REVIEW OF SYSTEMS Complete review of systems is remarkable for severe anxiety. MENTAL STATUS EXAMINATION General appearance: Patient is moderately obese, dressed casually in hospital attire, pleasant, cooperative, and made good eye contact. Attention span and concentration, fair. Speech, regular rate, coherent. Oriented in time, place, and person. Mood and affect were sad and dysphoric. Thought process coherent and goal directed. Thought content, patient denied any thoughts of harming self or others. Recent and remote memory fair. Language, able to name objects and repeat phrases. Fund of knowledge, fair. Insight and judgment are fair to slightly impaired. DIAGNOSES PSYCHIATRIC: Major depressive disorder, recurrent, severe, F33.2, anxiety disorder not otherwise specified, F40.01. SECONDARY DIAGNOSIS Deferred. MEDICAL DIAGNOSIS Please refer to History and Physical. ASSESSMENT AND PLAN 1. Supportive psychotherapy and psychoeducation provided. 2. Educated about benefits and side effects of medication and course and prognosis of illness. 3. Provided grief counseling. 4. Advised at this time to continue with the current antidepressive Wellbutrin and add Vistaril 25 mg twice daily. If needed, consider medication for sleep or addition of further medication. 5. Please feel free to call with any questions at [phone]. Dictated by... Pasha Licona TD: 06/05/2016 14:06 Unit #: [id number] #: [id number] Patient: ABY RODRIGUEZ JOB #: [id number] CONSULTATION REPORT Page 1 of 1 X Dayday Celeste MD CONSULTATION REPORT
--- NOTE | ~2016-06-02 | CR63 ---
[facility] A Service of [facility] RADIOLOGY TEXT RESULTS PATIENT: IRENE RECINOS LOCATION: [facility] : 58 UNIT #: [id number] AGE: [address]: Alen Arango MD SEX: F ORDER DR: [id number] [facility] [address] [place], [place] [address] [id number] I MR#: [id number] Acc #: [id number] NAME: IRENE RECINOS. : 1960 SEX: F STUDY DATE/TIME: 06/05/2016 17:56 UNIT: [facility] ROOM: [facility] STUDY DESCRIPTION: CR Chest 2 View Attending Physician: Alen Arango M.D. Ordering Physician: Alne Arango M.D. Primary Care Physician: Tania Vizcarra MEDICAL IMAGING REPORT This report is preliminary unless electronic signature is present EXAM AP and lateral chest HISTORY Cough and shortness of air. Weakness for 3 days. FINDINGS Two views of the chest demonstrate the cardiac size and pulmonary vascularity are near the upper limits of normal. Mild left perihilar mass-like density corresponds to the finding in the inferomedial left upper lobe on CT today, reported separately. Mild linear atelectasis or scarring in the right midlung and small amount of fluid or pleural thickening at the right base. IMPRESSION 1. Focal nodular mass like density along the inferior left hilum corresponds to the abnormality on chest CT in the inferomedial left upper lobe earlier today. 2. Small amount of fluid or pleural thickening at the right base. 3. Mild cardiac enlargement. Dictated by... Chung Mario M.D. THIS IS AN ELECTRONICALLY VERIFIED REPORT Chung Mario M.D. at 06/05/2016 10:59 PM BUBBA/vitaly TD: 06/05/2016 22:21 JOB #: [id number] [facility] A Service [facility] RADIOLOGY TEXT RESULTS PATIENT: IRENE RECINOS LOCATION: [facility] : 58 UNIT #: [id number] AGE: [address]: Alen Arango MD SEX: F ORDER DR: MEDICAL IMAGING REPORT Page 1 of 1 COPY
--- NOTE | ~2016-06-02 | DS ---
Unit #: [id number] #: [id number] Patient: IRENE RECINOS [id number] [address] [place], [place] [address] [id number] I MR#: [id number] NAME: IRENE RECINOS. ROOM: 556 Age: 55 Sex: F Admission Date: 06/02/2016 : 1960 Discharge Date: 06/06/2016 Attending Physician: Alen Arango M.D. Primary Care Physician: Tania Vizcarra DISCHARGE SUMMARY DISCHARGE DIAGNOSES Left upper lobe pneumonia, acute on chronic respiratory failure, stage 3 chronic kidney disease, diabetes, adjustment disorder, hypertension. HOSPITAL COURSE The patient is a 55-year-old female who presented to [facility] emergency department with the complaint of diarrhea and cough. The patient did have a recent hospitalization and IV antibiotic exposure secondary to a Klebsiella urinary tract infection one month prior. As a result, given her diarrhea and leukocytosis, there was some concern for C. diff. The patient was admitted and stool studies were ordered. During the course of the hospitalization, however, the patient had no diarrhea. The patient did have increased oxygen requirements and sputum production. Her procalcitonin was elevated at 0.48 and so there were some concern for pneumonia. CT was ordered and the patient did indeed have a left upper lobe pneumonia. She was started on antibiotics for treatment of such and V/Q can was ordered based on radiology recommendations. V/Q scan has returned as low probability at this time. Given the elucidation of the patient's symptoms and improvement in her white count, the patient is being discharged home and completed a course of antibiotics for pneumonia. DISCHARGE MEDICATIONS 1. Combivent Respimat one puff q.i.d. 2. Sodium bicarb 1300 mg p.o. t.i.d. 3. Wellbutrin 150 mg p.o. daily. 4. Zofran 4 mg p.o. q.4 hours p.r.n. 5. Lipitor 80 mg p.o. q.h.s. 6. Vistaril 25 mg p.o. b.i.d. 7. Norvasc 10 mg daily. 8. Hydralazine 25 mg p.o. t.i.d. 9. Humalog per sliding scale t.i.d. with meals. 10. Iron sulfate 325 mg p.o. daily. 11. Aspirin 325 mg daily. 12. Baclofen 10 mg p.o. b.i.d. as needed for muscle spasms. 13. Calcitriol 0.25 mg p.o. daily. 14. Omnicef 300 mg p.o. b.i.d. x5 days. FOLLOWUP The patient is being discharged home and should followup with her primary care provider at the end of her antibiotic course. Unit #: [id number] #: [id number] Patient: IRENE RECINOS Dictated by... Pasha Avila/tj TD: 06/07/2016 09:12 JOB #: [id number] DISCHARGE SUMMARY Page 1 of 1 X Alen Arango MD X DISCHARGE SUMMARY
--- NOTE | ~2016-06-02 | CO ---
Unit #: [id number] #: [id number] Patient: ABY RODRIGUEZ [id number] [address] [place], [place] [address] [id number] I MR#: [id number] NAME: ABY RODRIGUEZ. ROOM: 556 Age: 55 Sex: F Admission Date: 06/02/2016 : 1960 Attending Physician: Alen Arango M.D. Primary Care Physician: Tania Vizcarra Consultation Date: 06/03/2016 CONSULTATION REPORT REASON FOR CONSULTATION Renal insufficiency. HISTORY OF PRESENT ILLNESS Thank you very much for asking me to see this patient in consultation. Ms. Aby Rodriguez is a 55-year-old female with a history of chronic kidney disease stage 5, who is followed by Dr. Piter Deutsch in our group, with baseline creatinines in the low 3's. She is supposed to get a fistula placed on the 21 of June. She was here in the hospital early May, where she was here from 05/01/2016 to 05/03/2016, where she had a klebsiella pneumoniae urinary tract infection, treated with Levaquin. She was also noted to have incidental finding of cholelithiasis, although I am not sure she has followed up with surgery yet for that. She presented to the hospital again last night with low-grade fever, nausea, vomiting, diarrhea, weakness and depression. Her in the last week. She states she has been taking all of her medicines. She denies any shortness of breath. Questionable chest pain. She says she is sleeping wrong on her shoulder and it started down in her upper chest on the left side. She denies any worsening swelling. She denies any urinary symptoms. PAST MEDICAL HISTORY 1. History of chronic kidney disease stage 4-5. 2. History of Klebsiella pneumoniae urinary tract infection again in 05/01/2016. 3. History of cholelithiasis. 4. History of toxic metabolic encephalopathy secondary to urinary tract infection in the past with a history of some mild questionable underlying dementia. 5. History of diabetes mellitus type 2. 6. History of hypertension. 7. History of paroxysmal atrial fibrillation. 8. History of chronic obstructive pulmonary disease. 9. History of immobilization syndrome. 10. History of previous CVA in the past. 11. History of morbid obesity. SOCIAL HISTORY She is now a and lives alone. Positive smoker. No (1) alcohol abuse. FAMILY HISTORY Positive for diabetes, colon cancer, pancreatic cancer. ALLERGIES Unit #: [id number] #: [id number] Patient: BAY RODRIGUEZ No known drug allergies. HOME MEDICATIONS 1. Sodium bicarb 650 mg p.o. t.i.d. 2. Wellbutrin 150 mg daily. 3. Lipitor 80 mg at night. 4. Coreg 6.25 mg b.i.d. 5. Norvasc 10 mg daily. 6. Lasix 20 mg daily. 7. Insulin. 8. Iron pill daily. 9. Aspirin 325 mg daily. 10. Rocaltrol 0.25 mcg daily. 11. Hydralazine 25 mg t.i.d. REVIEW OF SYSTEMS As mentioned in history of present illness, otherwise negative. PHYSICAL EXAMINATION GENERAL: She is alert. VITALS: Temperature is t-max 100.7, pulse 82-118, blood pressure 126-154/40s-90s. HEENT: She is normocephalic, atraumatic. Pupils are equal, round and reactive to light. Extraocular muscles are intact and appear to be normal. Mouth is clear. No erythema. No exudate. NECK: Supple. No adenopathy. LUNGS: Clear bilaterally. No wheezes, rhonchi or rales. HEART: Regular rhythm currently without rub. No S3 or S4. ABDOMEN: Bowel sounds positive. Nontender, soft, obese. EXTREMITIES: She has no significant lower extremity swelling. Pulses are intact in her lower extremities. Joints, no joint pain or joint swelling. SKIN: No acute rashes. NEUROLOGIC: Appears intact motor and sensory grossly. : Deferred. DIAGNOSTIC STUDIES LABORATORY: This morning, glucose 236, BUN 32, creatinine 4, GFR 11 mL per minute. Creatinine actually has been ranging in the 3.7-4 range over the last 6 months or more. Potassium 4.4, bicarb 20, calcium 8.0, albumin 2.8, lipase 13. Liver function tests normal. Hemoglobin 10.9, white blood cell count 20,000 down from 26,500, platelets 203,000. Urinalysis showed (1) 1.023, 3+ protein, 1+ blood, 2-5 RBCs, 10-25 WBCs. Blood cultures are pending. Stool for c-diff is pending repeat. Urine culture is also pending. ASSESSMENT/PLAN 1. Chronic kidney disease stage 5. The patient's creatinine is certainly elevated. I would like to try to hold off on dialysis on her until we can get her fistula mature, but certainly if her renal function worsens then we will have to consider sooner than later. Will follow electrolytes. I agree with holding her diuretics for now and a little bit of fluid. Will continue to follow. 2. Hypertension. Again, continue current medications. Would keep her off an AARON inhibitor and angiotensin bobo. 3. Metabolic acidosis. Will increase her oral bicarbonate. 4. Secondary hyperparathyroidism. Continue her Rocaltrol. 5. Diarrhea. I agree with workup for c-diff and treatment. 6. Possible recurrent urinary tract infection. Cultures pending. Unit #: [id number] #: [id number] Patient: ABY RODRIGUEZ 7. Diabetes mellitus. Dictated by.Jada Gomez M.D. WAMarybel/gz TD: 06/03/2016 11:28 JOB #: [id number] CONSULTATION REPORT Page 1 of 1 X Dandre Gomez MD X CONSULTATION REPORT
--- NOTE | ~2016-06-02 | EKG ---
PATIENT: IRENE RECINOS UNIT #: [id number] Ventricular Rate: 108 BPM Atrial Rate: 108 BPM P-R Interval: 130 ms QRS Duration: 80 ms Q-T Interval: 346 ms QTC Calculation(Bezet): 463 ms P [place]: 39 degrees Calculated R [place]: 3 degrees Calculated T [place]: 97 degrees Diagnosis Line: Sinus tachycardia Diagnosis Line: Nonspecific ST and T wave abnormality Diagnosis Line: Abnormal ECG Diagnosis Line: When compared with ECG of 30-APR-2016 22:18, Diagnosis Line: LA interval has increased Diagnosis Line: Criteria for Septal infarct are no longer Present Diagnosis Line: Nonspecific T wave abnormality no longer evident Diagnosis Line: in Anterior leads Diagnosis Line: Confirmed by CYNTHIA FAGAN MD ([id number]) on 06/04/2016 Diagnosis Line: 10:59:17 PM INTERPRETING MD: RYLAN JUDGE
--- NOTE | ~2016-06-02 | CT57 ---
[facility] A Service of [facility] RADIOLOGY TEXT RESULTS PATIENT: IRENE RECINOS LOCATION: [facility] 556-01 : 59 UNIT #: [id number] AGE: [address]: Alen Arango MD SEX: F ORDER DR: [id number] [facility] [address] [place], [place] [address] [id number] I MR#: [id number] Acc #: [id number] NAME: IRENE RECINOS. : 1960 SEX: F STUDY DATE/TIME: 06/04/2016 17:13 UNIT: [facility] ROOM: [facility] STUDY DESCRIPTION: CT Chest Wo Cont Attending Physician: Alen Arango M.D. Ordering Physician: Rom Gomez M.D. Primary Care Physician: Tania Vizcarra MEDICAL IMAGING REPORT This report is preliminary unless electronic signature is present EXAM CT chest INDICATIONS Shortness of air and hypoxia for [address] of the thorax without contrast. Coronal and sagittal reconstructions were obtained. This CT exam was performed with one or more of the following radiation dose reduction techniques: Automatic exposure control, adjustment of mA and/or kV according to patient size, and iterative reconstruction. COMPARISON Chest radiograph dated 06/02/2016 and 04/30/2016. CT chest dated 04/09/2012. FINDINGS There is trace right pleural fluid. This has significantly improved from the 04/09/2012 comparison. There is minimal peripheral atelectasis in the right upper lobe and right lower lobe. There is a new area of consolidation in the anterior left upper lobe. This area is somewhat wedge-shaped, however has air bronchograms. This is most consistent with pneumonia. There is a benign granuloma in the left lower lobe. No pathologically enlarged mediastinal or hilar lymph nodes. No pericardial or pleural effusion. There are some coronary artery calcifications. Limited images of the upper abdomen were obtained. Multiple gallstones are identified in the gallbladder. Extensive atherosclerotic calcifications are identified in the abdominal vasculature. [facility] A Service [facility] RADIOLOGY TEXT RESULTS PATIENT: IRENE RECINOS LOCATION: [place] [id number] : 58 UNIT #: [id number] AGE: [address]: Alen Arango MD SEX: F ORDER DR: No new osseous abnormalities. IMPRESSION 1. Wedge-shaped opacity in the anterior aspect of the left upper lobe with associated air bronchograms. The imaging appearance is most consistent with an area of acute pneumonia. Given the wedge-shaped configuration, I would request correlation for any evidence of a pulmonary embolus. If present, consider further evaluation with a CT angiogram. 2. Near resolution of the right pleural effusion. There is minimal linear scarring or atelectasis in the right lung. Dictated by... Haresh Martinez M.D. THIS IS AN ELECTRONICALLY VERIFIED REPORT Haresh Martinez M.D. at 06/04/2016 10:41 PM GUSTAVO/reza TD: 06/04/2016 22:34 JOB #: [id number] MEDICAL IMAGING REPORT Page 1 of 1 COPY
--- NOTE | ~2016-06-02 | NM69 ---
[facility] A Service [facility] RADIOLOGY TEXT RESULTS PATIENT: IRENE RECINOS LOCATION: [facility] : 58 UNIT #: [id number] AGE: [address]: Alen Arango MD SEX: F ORDER DR: [id number] [facility] [address] [place], [place] [address] [id number] I MR#: [id number] Acc #: [id number] NAME: IRENE RECINOS. : 1960 SEX: F STUDY DATE/TIME: 06/05/2016 18:11 UNIT: [facility] ROOM: [facility] STUDY DESCRIPTION: NM Pulm Vent and Perf Attending Physician: Alen Arango M.D. Ordering Physician: Rom Gomez M.D. Primary Care Physician: Tania Vizcarra MEDICAL IMAGING REPORT This report is preliminary unless electronic signature is present EXAM Ventilation-perfusion scan INDICATIONS Hypoxia. Abnormal chest radiograph. Pneumonia. COMPARISON CT chest 06/04/2016. FINDINGS 32 mCi technetium-99m DTPA was inhaled for the ventilation portion of the examination. There is fairly uniform distribution of the radiotracer. There is a focal defect along the anterior aspect of the left upper lobe. This correlates with the known pneumonia. 5.9 mCi technetium-99m MAA was injected IV per protocol for the perfusion portion of the exam. There is fairly uniform distribution of the radiotracer. There is a matched defect at the area of the pneumonia. No ventilation-perfusion mismatches to indicate a pulmonary embolus. IMPRESSION Low probability ventilation-perfusion scan for pulmonary embolus. Dictated by... Haresh Martinez M.D. THIS IS AN ELECTRONICALLY VERIFIED REPORT Haresh Martinez M.D. at 06/06/2016 3:22 PM [facility] TD: 06/05/2016 21:43 JOB #: [id number] [facility] A Service [facility] RADIOLOGY TEXT RESULTS PATIENT: IRENE RECINOS LOCATION: [facility] : 58 UNIT #: [id number] AGE: [address]: Alen Arango MD SEX: F ORDER DR: MEDICAL IMAGING REPORT Page 1 of 1 COPY
[2016-06-02 18:59] LABS: POC - CKMB 5.9 ng/mL (0.0-7.9); POC - TROPONIN <0.05 ng/mL (<=0.05)
[~2016-06-02 19:06] MED LIST changes: +BAYER ASPIRIN325 M1 PO; +CALCITRIOL0.25 MC1 PO; +HUMALOG100 U/ML; +HYDRALAZINE HCL25 MG PO; +LEVAQUIN250 MG PO; +LIPITOR80 MG PO
[2016-06-02 19:22] LABS: BASOPHIL# 0.1 X10e3 (0-0.3); BASOPHIL% 0.2 % (0-2.5); EOSINOPHIL# 0.1 X10e3 (0-0.7); EOSINOPHIL% 0.2 % (0.0-7.0); HEMATOCRIT 40.1 % (35.0-45.0); HEMOGLOBIN 12.6 gm/dL (12.0-16.0); LYMPHOCYTE# 2.1 X10e3 (1.0-3.5); MEAN CELL VOLUME 91.3 FL (83-96); MEAN CORPUSCULAR HEMOGLOBIN 28.7 PG (28-34); MEAN CORPUSCULAR HGB CONC 31.5 g/dL (30-36); MEAN PLATELET VOLUME 9.6 FL (6.5-11.5); MONOCYTE# 2.2 X10e3 (0-1.0); MONOCYTE% 8.4 % (3.0-12.0); NEUTROPHIL# 22.1 X10e3 (1.5-7.1); NEUTROPHIL% 83.2 % (40-75); PLATELET COUNT 272 X10e3 (140-420); RED CELL DISTRIBUTION WIDTH 15.4 % (11.0-15.5); WHITE BLOOD COUNT 26.5 X10e3 (4.0-10.5)
[2016-06-02 19:23] LABS: DIFF IND YES
[2016-06-02 19:32] LABS: ANISOCYTOSIS SL; PLATELET ESTIMATE NORMAL (NORMAL); POIKILOCYTOSIS SL
[2016-06-02 19:44] LABS: ALBUMIN SERUM 2.8 g/dL (3.5-5.0); BILIRUBIN, DIRECT 0.2 mg/dL (0.0-0.2); BILIRUBIN,INDIRECT 0.9 mg/dL (0.0-0.9); BILIRUBIN,TOTAL 1.1 mg/dL (0.2-2.0); CALCIUM SERUM 8.6 mg/dL (8.4-10.2); GLOM FILT RATE Estimated 11.8 mL/min (>60); POTASSIUM 4.4 mmol/L (3.5-5.1); PROTEIN TOTAL SERUM 6.9 g/dL (6.0-8.3)
[2016-06-02 20:32] LABS: URINE SOURCE CLEAN CATCH
[2016-06-02 20:34] LABS: URINE APPEARANCE CLEAR; URINE BILIRUBIN NEG (NEG); URINE BLOOD 1+ (NEG); URINE COLOR YELLOW; URINE GLUCOSE 250 MG/DL (NEG); URINE KETONE NEG (NEG); URINE LEUKOCYTE ESTERASE NEG (NEG); URINE NITRATE NEG (NEG); URINE PROTEIN 3+ (NEG); URINE SPECIFIC GRAVITY 1.023 (1.003-1.035); URINE UROBILINOGEN 0.2 MG/DL (NEG)
[2016-06-02 20:38] LABS: CULTURE INDICATED? YES; URINE BACTERIA AUWI NEG (NEGATIVE); URINE SQUAMOUS EPITHELIAL CELL FEW /[HPF]
[2016-06-02 20:40] LABS: U HYALINE CASTS AUWI 0-2 /[LPF]
[2016-06-02] MEDS ORDERED: ZOFRAN PO (20:44)
[2016-06-02] MEDS ORDERED: LIORESAL10 MG PO (20:45)
[2016-06-03 07:01] LABS: BASOPHIL# 0.1 X10e3 (0-0.3); BASOPHIL% 0.3 % (0-2.5); HEMATOCRIT 34.1 % (35.0-45.0); HEMOGLOBIN 10.9 gm/dL (12.0-16.0); LYMPHOCYTE# 0.3 X10e3 (1.0-3.5); LYMPHOCYTE% 1.5 % (17.0-45.0); MEAN CELL VOLUME 91.3 FL (83-96); MEAN CORPUSCULAR HEMOGLOBIN 29.2 PG (28-34); MEAN PLATELET VOLUME 9.5 FL (6.5-11.5); MONOCYTE# 0.2 X10e3 (0-1.0); MONOCYTE% 1.1 % (3.0-12.0); NEUTROPHIL# 19.4 X10e3 (1.5-7.1); NEUTROPHIL% 97.1 % (40-75); PLATELET COUNT 203 X10e3 (140-420); RED BLOOD COUNT 3.74 X10e (3.90-5.30); RED CELL DISTRIBUTION WIDTH 15.1 % (11.0-15.5)
[2016-06-03 07:08] LABS: DIFF IND NO
[2016-06-03 07:17] LABS: GLOM FILT RATE Estimated 11.8 mL/min (>60); POTASSIUM 4.4 mmol/L (3.5-5.1)
[2016-06-04 05:51] LABS: HEMATOCRIT 33.1 % (35.0-45.0); HEMOGLOBIN 10.5 gm/dL (12.0-16.0); MEAN CELL VOLUME 90.1 FL (83-96); MEAN CORPUSCULAR HEMOGLOBIN 28.7 PG (28-34); MEAN CORPUSCULAR HGB CONC 31.9 g/dL (30-36); MEAN PLATELET VOLUME 9.2 FL (6.5-11.5); RED BLOOD COUNT 3.67 X10e (3.90-5.30); RED CELL DISTRIBUTION WIDTH 15.3 % (11.0-15.5)
[2016-06-04 05:53] LABS: WHITE BLOOD COUNT 32.8 X10e3 (4.0-10.5)
[2016-06-04 06:48] LABS: BUN/CREATININE RATIO 9.72; CALCIUM SERUM 8.1 mg/dL (8.4-10.2); CREATININE SERUM 3.7 mg/dL (0.6-1.4); GLOM FILT RATE Estimated 12.9 mL/min (>60); MAGNESIUM 1.5 mg/dL (1.6-3.0); PHOSPHOROUS 3.9 mg/dL (2.5-4.6); POTASSIUM 4.4 mmol/L (3.5-5.1)
[2016-06-04 07:35] LABS: %MB 11.7 % (0.0-4.0); MB 8.4 ng/ml
[2016-06-05 08:51] LABS: HEMATOCRIT 31.8 % (35.0-45.0); MEAN CORPUSCULAR HEMOGLOBIN 28.9 PG (28-34); MEAN CORPUSCULAR HGB CONC 31.4 g/dL (30-36); MEAN PLATELET VOLUME 9.2 FL (6.5-11.5); RED BLOOD COUNT 3.45 X10e (3.90-5.30); RED CELL DISTRIBUTION WIDTH 15.5 % (11.0-15.5); WHITE BLOOD COUNT 16.9 X10e3 (4.0-10.5)
[2016-06-05 09:21] LABS: BUN/CREATININE RATIO 9.48; CALCIUM SERUM 7.4 mg/dL (8.4-10.2); CREATININE SERUM 3.9 mg/dL (0.6-1.4); GLOM FILT RATE Estimated 12.1 mL/min (>60); MAGNESIUM 2.1 mg/dL (1.6-3.0); POTASSIUM 4.5 mmol/L (3.5-5.1)
[2016-06-06 06:29] LABS: CALCIUM SERUM 7.8 mg/dL (8.4-10.2); CREATININE SERUM 3.5 mg/dL (0.6-1.4); GLOM FILT RATE Estimated 13.8 mL/min (>60); POTASSIUM 4.8 mmol/L (3.5-5.1)
[2016-06-06] MEDS ORDERED: HYDROXYZINE PAM25 M1 PO (10:37)
[2016-06-06] MEDS ORDERED: COMBIVENT RESPIM4 GM INH (10:40)
[2016-06-06] MEDS ORDERED: OMNICEF300 MG PO (10:40)
== END 2016-06-06 20:40 | disposition home health service (06) | DRG 189 ==
LOC: CED 19:06 → CEDOF 22:00 → C5B 06-03 10:36
PROVIDERS: Emergency Medicine; Internal Medicine; Internal Medicine Nephrology; Physician Assistant Medical
PROC: 06HM33Z Insertion of Infusion Device into Right Femoral Vein, Percutaneous Approach (ICD-10-PCS; principal; 2016-06-04)
PROC: B54BZZA Ultrasonography of Right Lower Extremity Veins, Guidance (ICD-10-PCS; 2016-06-04)
DX: J96.21 Acute and chronic respiratory failure with hypoxia (principal); J18.9 Pneumonia, unspecified organism; N17.9 Acute kidney failure, unspecified; B37.0 Candidal stomatitis; F33.2 Major depressive disorder, recurrent severe without psychotic features; N18.5 Chronic kidney disease, stage 5; E87.2 Acidosis; J44.0 Chronic obstructive pulmonary disease with (acute) lower respiratory infection; J44.1 Chronic obstructive pulmonary disease with (acute) exacerbation; F17.210 Nicotine dependence, cigarettes, uncomplicated; E11.22 Type 2 diabetes mellitus with diabetic chronic kidney disease; M62.3 Immobility syndrome (paraplegic); F43.21 Adjustment disorder with depressed mood; F40.01 Agoraphobia with panic disorder; R19.7 Diarrhea, unspecified; E21.3 Hyperparathyroidism, unspecified; I12.9 Hypertensive chronic kidney disease with stage 1 through stage 4 chronic kidney disease, or unspecified chronic kidney disease; F43.20 Adjustment disorder, unspecified; F41.9 Anxiety disorder, unspecified; E66.01 Morbid (severe) obesity due to excess calories; Z83.3 Family history of diabetes mellitus; Z80.0 Family history of malignant neoplasm of digestive organs; Z80.8 Family history of malignant neoplasm of other organs or systems; Z79.4 Long term (current) use of insulin; Z79.82 Long term (current) use of aspirin
CPT/HCPCS: 71020; 71250; 78582; 80048; 80076; 81003; 82308; 82550; 82553; 82947; 83690; 83735; 84100; 84484; 85025; 85027; 87040; 87070; 87086; 87205; 93005; 94640; 94760; 96365; 96375; 99291; A9540; A9567; J0456; J0696; J1650; J1815; J1956; J2270; J2405; J2550; J2930; J3370; J3475